=== PATIENT | male | born 1935 | race American Indian/Alaskan Native ===

== ENCOUNTER 2022-04-09 10:15 | Outpatient (CLI) | payer MEDICARE ==
[2022-04-09 11:30] LABS: RBC,Urine < 1.0 /HPF (0.0-6.0)
[2022-04-09 11:33] LABS: Basophils % (Auto) 0.5 % (0.0-1.8); Eosinophils # (Auto) 0.1 K/mm3 (0.0-0.4); Eosinophils % (Auto) 0.8 % (0.0-4.3); Hematocrit 40.3 % (35.5-45.6); Hemoglobin 13.3 gm/dl (11.8-15.2); Lymphocytes # (Auto) 2.4 K/mm3 (1.2-5.4); Lymphocytes % (Auto) 34.4 % (13.4-35.0); Mean Corpuscular HGB Conc 33 % (32-34); Mean Corpuscular Volume 96 fl (84-94); Monocytes # (Auto) 0.6 K/mm3 (0.0-0.8); Monocytes % (Auto) 9.2 % (0.0-7.3); Platelet Count 159 K/mm3 (140-440); Red Blood Count 4.21 M/mm3 (3.65-5.03); Red Cell Distribution Width 14.2 % (13.2-15.2)
[2022-04-09 11:35] LABS: Color,Urine Straw (Yellow); WBC,Urine < 1.0 /HPF (0.0-6.0)
[2022-04-09 11:42] LABS: Creatinine,Urine 64.6 mg/dL (0.1-20.0); Protein/Creatinine Ratio,Urine 0.45
[2022-04-09 11:47] LABS: Calcium 9.7 mg/dL (8.4-10.2)
[2022-04-09 12:12] LABS: Hepatitis B Surface Antigen Non-Reactive (Negative); Hepatitis C Virus Antibody Non-Reactive (NonReactive)
[2022-04-13 15:45] LABS: Vitamin D, 25-OH, D2 <4 ng/mL
== END 2022-04-09 10:16 | disposition home or self-care (01) ==
LOC: LAB 10:15
PROVIDERS: ATTEND Internal Medicine Nephrology
DX: R94.4 Abnormal results of kidney function studies (principal); N17.9 Acute kidney failure, unspecified; E11.9 Type 2 diabetes mellitus without complications
CPT/HCPCS: 36415; 80048; 80074; 81001; 82306; 82570; 82607; 83550; 83970; 84156; 84550; 85025; 86334